=== PATIENT | male | born 1950 | race Caucasian/White ===

== ENCOUNTER 2017-10-28 01:11 | Emergency (ER) | payer OTHER, SELFPAY | END 2017-10-28 03:11 | disposition E | LOC: M ED 01:11 | DX: I46.9 Cardiac arrest, cause unspecified (principal); Z79.82 Long term (current) use of aspirin; Z79.84 Long term (current) use of oral hypoglycemic drugs; Z79.899 Other long term (current) drug therapy | CPT/HCPCS: 92950 ==